=== PATIENT | female | born 1995 | race Two or more races ===

== ENCOUNTER 2017-12-23 13:50 | Emergency (ER) | payer OTHER ==
[~2017-12-23] VITALS: Ht 157.5 cm; Wt 56.2 kg
--- NOTE | 2017-12-23 14:00 | NUR ---
nausea, dizziness, abdominal pain, vomiting, sob X 2 days, nad noted, vss, resp even and unlabored, waiting for md eval.
[2017-12-23 14:30] LABS: APPEARANCE,URINE Slightly Cloudy (CLEAR); BILIRUBIN,URINE Negative (NEGATIVE); BLOOD, URINE Trace-lysed Ery/uL (NEGATIVE); COLOR,URINE Yellow (YELLOW); KETONES,URINE >=160 (NEGATIVE); LEUKOCYTE ESTERASE ,URINE Small (NEGATIVE); NITRITE, URINE Negative (NEGATIVE); PH,URINE 5.5 (5.0-8.0); PROTEIN,URINE Negative (NEGATIVE); UGLUCOSE Negative (NEGATIVE); UROBILINOGEN,URINE 0.2 EU/dL (0.2)
[2017-12-23] MEDS ORDERED: IV NS 0.9% 1,000 ML BAG IV ONE (14:30)
[2017-12-23] MEDS ORDERED: METOCLOPRAMIDE HCL 10 MG/2 ML VIAL IV ONE (14:30)
[2017-12-23] MEDS ORDERED: METOCLOPRAMIDE HCL 10 MG/2 ML VIAL ONE (14:32)
[2017-12-23 14:38] LABS: BASOPHILS # (AUTO) 0.6 /CMM (0.0-0.2); BASOPHILS % (AUTO) 4.6 % (0.0-2.0); EOSINOPHILS # (AUTO) 0.1 /CMM (0.0-0.7); EOSINOPHILS % (AUTO) 0.4 % (0.0-6.0); HEMATOCRIT 42 % (33-45); HEMOGLOBIN 14.3 g/dL (11.5-14.8); LYMPHOCYTES # (AUTO) 1.1 /CMM (0.8-4.8); LYMPHOCYTES % (AUTO) 8.1 % (20.0-44.0); MEAN CORPUSCULAR HEMOGLOBIN 31 PG (26.0-33.0); MEAN CORPUSCULAR HGB CONC 34 g/dl (31.0-36.0); MEAN CORPUSCULAR VOLUME 89 fL (82-100); MONOCYTES # (AUTO) 0.5 /CMM (0.1-1.30); MONOCYTES % (AUTO) 3.8 % (2.0-12.0); NEUTROPHILS # (AUTO) 11.1 /CMM (1.8-8.9); NEUTROPHILS % (AUTO) 83.1 % (43.0-81.0); PLATELET COUNT (AUTO) 303 /CMM (150-450); RDW COEFFICIENT OF VARIATION 11.9 (11.5-15.0); RED BLOOD CELL COUNT(AUTO) 4.66 MIL/uL (4.0-5.2); WHITE BLOOD COUNT (AUTO) 13.4 K/uL (4.3-11.0)
[2017-12-23 14:39] LABS: BACTERIA,URINE Few /HPF (None Seen); SQUAMOUS EPITHELIAL CELL,UR Moderate /HPF (None Seen)
[2017-12-23 14:47] LABS: CALCIUM, SERUM 9.2 mg/dL (8.5-10.1); CREATININE 0.4 mg/dL (0.6-1.3); POTASSIUM 3.6 mmol/L (3.5-5.1)
[2017-12-23 14:54] LABS: ALBUMIN 3.8 g/dL (3.4-5.0); BILIRUBIN,DIRECT 0.2 mg/dL (0.0-0.2); BILIRUBIN,TOTAL 0.6 mg/dL (0.2-1.0); TOTAL PROTEIN, SERUM 7.9 g/dL (6.4-8.2)
[2017-12-23] MEDS ORDERED: diphenhydrAMINE HCL 50 MG/ML VIAL IV ONE (15:00)
[2017-12-23] MEDS ORDERED: diphenhydrAMINE HCL 50 MG/ML VIAL ONE (15:28)
[2017-12-23 15:58] VITALS: BP 118/75
--- NOTE | 2017-12-23 16:00 | NUR ---
Patient discharged to home in stable condition. Written and verbal after care instructions given. Patient verbalizes understanding of instruction.IV removed. Catheter intact and site benign. Pressure and 4x4 applied to site. No bleeding noted.Prescription given.
== END 2017-12-23 16:03 | disposition home or self-care (01) ==
LOC: ER 13:53
DX: O21.1 Hyperemesis gravidarum with metabolic disturbance (principal); E86.0 Dehydration; K29.70 Gastritis, unspecified, without bleeding; J45.909 Unspecified asthma, uncomplicated; Z3A.12 12 weeks gestation of pregnancy
CPT/HCPCS: 36415; 76705-TC; 80048-TC; 80076-TC; 81000-TC; 83690-TC; 85025-TC; A4606; J1200; J2765; J7030; Z7610

== ENCOUNTER 2018-01-13 20:09 | Emergency (ER) | payer OTHER ==
[~2018-01-13] VITALS: Ht 157.5 cm; Wt 56.7 kg
[2018-01-13 20:29] VITALS: BP 111/65
[2018-01-13] MEDS ORDERED: ACETAMINOPHEN 325 MG TABLET PO ONE (21:00)
[2018-01-13] MEDS ORDERED: ACETAMINOPHEN 325 MG TABLET ONE (21:01)
== END 2018-01-13 21:49 | disposition home or self-care (01) ==
LOC: ER 20:13
DX: O9A.212 Injury, poisoning and certain other consequences of external causes complicating pregnancy, second trimester (principal); S39.012A Strain of muscle, fascia and tendon of lower back, initial encounter; S16.1XXA Strain of muscle, fascia and tendon at neck level, initial encounter; J45.909 Unspecified asthma, uncomplicated; Z3A.16 16 weeks gestation of pregnancy; V43.62XA Car passenger injured in collision with other type car in traffic accident, initial encounter; Y93.89 Activity, other specified; Y92.410 Unspecified street and highway as the place of occurrence of the external cause; Y99.8 Other external cause status
CPT/HCPCS: 76856; 99284; A4606; Z7610

== ENCOUNTER 2019-09-28 10:11 | Emergency (ER) | payer MEDICAID, OTHER ==
[~2019-09-28] VITALS: Ht 160 cm; Wt 63.5 kg
[2019-09-28 10:18] VITALS: BP 114/55
== END 2019-09-28 10:38 | disposition home or self-care (01) ==
LOC: ER 10:16
DX: H00.016 Hordeolum externum left eye, unspecified eyelid (principal); J45.909 Unspecified asthma, uncomplicated